=== PATIENT | male | born 1960 | race American Indian/Alaskan Native ===

== ENCOUNTER 2019-03-05 06:42 | Day surgery (SDC) | payer OTHER ==
[2019-03-05] MEDS ORDERED: SODIUM CHLORIDE 0.9% 1000 ML 1,000 ML IV SCH (07:00)
[2019-03-05] MEDS ORDERED: PROPOFOL 200 MG/20 ML VIAL IV ONE ×2 (07:30)
[2019-03-05] MEDS ORDERED: LIDOCAINE (2%) 20 MG/1 ML VIAL 20 ML MDV INFILTRATI ONE (07:30)
--- NOTE | 2019-03-05 07:47 | Anesthesia Consultation ---
Anesthesia Consult and Med Hx Date of service: 03/05/19 - Airway Anesthetic Teeth Evaluation: Edentulous ROM Head & Neck: Adequate Mental/Hyoid Distance: Adequate Mallampati Class: Class II Intubation Access Assessment: Probably Good - Pre-Operative Health Status ASA Pre-Surgery Classification: ASA2 Proposed Anesthetic Plan: MAC - Pulmonary Hx Smoking: Yes (past) Hx Asthma: No Hx Respiratory Symptoms: No SOB: No COPD: No Home Oxygen Therapy: No Hx Pneumonia: No Hx Sleep Apnea: No - Cardiovascular System Hx Hypertension: No Hx Coronary Artery Disease: No Hx Heart Attack/AMI: No Hx Angina: No Hx Percutaneous Transluminal Coronary Angioplasty (PTCA): No Hx Cardia Arrhythmia: No Hx Pacemaker: No Hx Internal Defibrillator: No Hx Valvular Heart Disease: No Hx Heart Murmur: No Hx Peripheral Vascular Disease: No - Central Nervous System Hx Neuromuscular Disorder: No Hx Seizures: No CVA: No Hx Back Pain: Yes Hx Psychiatric Problems: No - Gastrointestinal Hx Ulcer: No Hx Gastroesophageal Reflux Disease: No - Endocrine Hx Renal Disease: No Hx End Stage Renal Disease: No Hx Cirrhosis: No Hx Liver Disease: No Hx Insulin Dependent Diabetes: No Hx Non-Insulin Dependent Diabetes: No Hx Thyroid Disease: No Hx Hypothyroidism: No Hx Hyperthyroidism: No - Hematic Hx Anemia: No Hx Sickle Cell Disease: No - Other Systems Hx Alcohol Use: Yes (occ.) Hx Substance Use: No Hx Cancer: No Hx Obesity: No
--- NOTE | 2019-03-05 07:48 | Anesthesia Day of Surgery ---
Anesthesia Day of Surgery - Day of Surgery Patient Examined: Yes Patient H&P Reviewed: Yes Patient is NPO: Yes Beta Blockers: No
[2019-03-05] MEDS ORDERED: WATER FOR IRRIG STERILE 250 ML BOTTLE IR ONE (07:58)
--- NOTE | 2019-03-05 08:55 | Procedure Note ---
Date of procedure: 03/05/19 Pre-op diagnosis: Colon Polyp Screening/ F/H/O Cancer (father) Post-op diagnosis: other (Multiple Recto-Sigmoid Polyps/ No Diverticular Disease noted/ Normal Ileal Mucosa and No Internal Hemorrhoids) Procedure: Colonoscopy with cold Snare Polypectomy and Cold Biopsy Anesthesia: MAC Surgeon: LATONYA KAPLAN Estimated blood loss: minimal Pathology: list Specimen disposition: to lab Condition: stable Disposition: same day (Avdoid aspirin and NSAID for 4 days; otherwise resume home medication and follow up in 1 to 2 weeks ([phone]).)
--- NOTE | 2019-03-05 09:01 | History and Physical Report ---
HISTORY OF PRESENT ILLNESS: The patient is a 59-year-old -[place] gentleman in otherwise good health who has some sinus issues, also has a family history of cancer. The patient's father has had pancreatic cancer. He is being evaluated for a colonoscopy as part of colon polyp screening. He states that his last colonoscopy was 4 years ago. ALLERGIES: He has no known allergies. SOCIAL HISTORY: Denies history of smoking or alcohol use. No cardiac issues and he has had his flu shots. PHYSICAL EXAMINATION: VITAL SIGNS: He is afebrile. Height is 5 feet 8, weight is 192 pounds, blood pressure 126/76, pulse is 59. HEENT: Shows no JVD. LUNGS: Clear to auscultation. CARDIOVASCULAR: Normal. ABDOMEN: Soft. Bowel sounds present. NEUROLOGIC: He is otherwise alert and oriented. ASSESSMENT: Colon polyp screening, family history of cancer. The patient's father has had pancreatic cancer. PLAN: To do a colonoscopy at [facility] on 03/05/2019. The patient is to use the [facility]. JOB# [id number] KJ/NTS
--- NOTE | 2019-03-05 09:01 | Operative Report ---
INDICATIONS: This is a 59-year-old -[place] gentleman who has a family history of cancer. Colonoscopy was done as part of colon polyp screening. DESCRIPTION OF PROCEDURE: Procedure was done after getting informed consent with MAC anesthesia. Initial rectal exam was unremarkable. Instrument was passed through the rectum onto the cecum, which was identified with ileocecal valve and appendiceal orifice. Visualization was fair to good. The terminal ileum was intubated showed normal mucosa. The cecum was also examined on the retroverted view. No additional pathology was noted. The cecum, ascending colon, transverse colon, descending colon showed normal mucosa. Most of the sigmoid appeared normal. The distal sigmoid and the rectosigmoid area showed about 4 polyps, 2 of which were removed by cold snare polypectomy and 2 by cold biopsy. There was minimal bleeding from the biopsy sites and no complications associated with the procedure. The rectum appeared essentially normal on the retroverted view. There were no significant hemorrhoids noted. ASSESSMENT: Colon polyp screening, family history of cancer, multiple, namely 4 rectosigmoid polyps. Normal ileal mucosa. Again, there was minimal bleeding associated with the procedure. No complications associated with the procedure. Procedure was done in the GI lab with assistance of the GI lab team, which included CLAUDINE Kennedy and anaid Cartagena and with assistance of Anesthesia. The patient will be asked to avoid aspirin and aspirin-related products for the next 3-4 days, but resume home medication and follow up in the office in 1-2 weeks' time. JOB# [id number] RAUL/KIRK
--- NOTE | 2019-03-05 09:04 | Post Anesthesia Evaluation ---
- Post Anesthesia Evaluation Patient Participated: Yes Airway Patent: Yes Stable Respiratory Function: Yes Nausea/Vomiting: No Temp > 96.8F: Yes Pain Manageable: Yes Adequeate Hydration: Yes Anesthesia Complications: No Block Receding Appropriately: Not Applicable Patient on Ventilator: No
[2019-03-05 09:28] VITALS: BP 130/78
--- NOTE | 2019-03-05 14:41 | Post Anesthesia Evaluation ---
- Post Anesthesia Evaluation Patient Participated: Yes Airway Patent: Yes Stable Respiratory Function: Yes Nausea/Vomiting: Yes Temp > 96.8F: Yes Pain Manageable: Yes Adequeate Hydration: Yes Anesthesia Complications: No Block Receding Appropriately: Not Applicable Patient on Ventilator: No
== END 2019-03-05 06:43 | disposition home or self-care (01) ==
LOC: EDBD 06:42 → GIO 06:42
DX: Z12.11 Encounter for screening for malignant neoplasm of colon (principal); K63.5 Polyp of colon; K62.1 Rectal polyp; Z80.0 Family history of malignant neoplasm of digestive organs; Z80.8 Family history of malignant neoplasm of other organs or systems; Z79.82 Long term (current) use of aspirin; Z72.89 Other problems related to lifestyle
CPT/HCPCS: 45380; 45385; 88305; J2704; J7030